=== PATIENT | male | born 2000 | race African-American/Black ===

== ENCOUNTER 2022-12-03 02:37 | Inpatient (IN) | payer OTHER ==
[~2022-12-03] VITALS: Ht 167.6 cm; Wt 91.0 kg
[2022-12-03] MEDS ORDERED: MULTIVITAMIN -ADULT INJECTION 10 ML, THIAMINE INJection 100 MG, FOLIC ACID 1 MG in NS 1... IV ONE (04:10)
[2022-12-03] MEDS ORDERED: NS 1,000 ML IV ONE (04:10)
[2022-12-03 04:28] LABS: HEMATOCRIT 43.3 % (42.0-52.0); HEMOGLOBIN 15.4 g/dl (13.5-17.5); MEAN CORPUSCULAR HEMOGLOBIN 28.8 pg (27.0-33.0); MEAN CORPUSCULAR HGB CONC 35.6 g/dl (32.0-36.5); MEAN CORPUSCULAR VOLUME 81.1 fl (80.0-96.0); PLATELET COUNT, AUTOMATED 222 10^3/uL (150-450); RED BLOOD COUNT 5.34 10^6/uL (4.30-6.10); WHITE BLOOD COUNT 8.3 10^3/uL (4.0-10.0)
[2022-12-03 04:54] LABS: ETHYL ALCOHOL (ETHANOL) 0.171 % (0.000-0.010)
[2022-12-03 04:56] LABS: ACETAMINOPHEN LEVEL < 2.0 UG/ML (10.0-20.0); ALBUMIN 4.6 G/DL (3.2-5.2); ALKALINE PHOSPHATASE 86 U/L (46-116); ALT/SGPT 15 U/L (7.0-40); AST/SGOT 18 U/L (<34); BILIRUBIN,DIRECT 0.3 MG/DL (<0.4); BLOOD UREA NITROGEN 8 MG/DL (9-23); CARBON DIOXIDE LEVEL 25 MMOL/L (20-31); CHLORIDE LEVEL 107 MMOL/L (98-107); GLOMERULAR FILTRATION RATE > 60.0 (>60); GLUCOSE, FASTING 111 MG/DL (60-100); POTASSIUM SERUM 3.6 MMOL/L (3.5-5.1); SALICYLATE LEVEL < 3.0 MG/DL (<30); SODIUM LEVEL 142 MMOL/L (136-145); TOTAL PROTEIN 7.1 G/DL (5.7-8.2)
[2022-12-03 04:58] LABS: THYROID STIMULATING HORMONE 1.259 uIU/ML (0.55-4.78)
[2022-12-03 09:03] LABS: BARBITURATES URINE NEGATIVE (NEGATIVE); COCAINE METABOLITE URINE NEGATIVE (NEGATIVE)
[2022-12-03 09:04] LABS: AMPHETAMINES LEVEL URINE NEGATIVE (NEGATIVE); BENZODIAZEPINES URINE NEGATIVE (NEGATIVE); CANNABINOIDS URINE NEGATIVE (NEGATIVE); METHADONE URINE NEGATIVE (NEGATIVE); OPIATES URINE NEGATIVE (NEGATIVE); PHENCYCLIDINE URINE NEGATIVE (NEGATIVE)
[2022-12-03] MEDS ORDERED: MOM 30ML SUSPENSION UDC PO PRN (22:40)
[2022-12-03] MEDS ORDERED: MAALOX 30 ML SUSP *UDC PO PRN (22:40)
[2022-12-03] MEDS ORDERED: LORazepam 2 MG TAB PO PRN (22:40)
[2022-12-03] MEDS ORDERED: ACETAMINOPHEN TAB 650MG DOSE (2X325MG) PO PRN (22:40)
[2022-12-04 01:36] VITALS: BP 146/72
[2022-12-04 07:05] VITALS: BP 136/73
[2022-12-04 08:00] VITALS: BP 140/63
[2022-12-04] MEDS ORDERED: HOME MED LIST COMPLETE! XX SCH (09:45)
[2022-12-04] MEDS: MULTIVITAMINS/MINERALS THERAP 1 TAB PO SCH (09:55)
[2022-12-04] MEDS: NICOTINE 21MG/24HR 1 EA TRANSDERMAL TD SCH (09:55)
[2022-12-04] MEDS: THIAMINE 100 MG TAB PO SCH ×2 (09:55→21:23)
[2022-12-04] MEDS: FOLIC ACID 1MG TAB PO SCH (09:55)
[2022-12-04] MEDS: SERTRALINE HCL 50 MG TAB PO SCH (12:52)
[2022-12-04 17:00] VITALS: BP 137/89
[2022-12-04 18:00] VITALS: BP 145/67
[2022-12-04] MEDS: traZODone 50 MG TAB PO PRN (21:23)
[2022-12-05 06:25] VITALS: BP 139/76
[2022-12-05 08:02] VITALS: BP 151/90
[2022-12-05] MEDS: NICOTINE 21MG/24HR 1 EA TRANSDERMAL TD SCH (08:12)
[2022-12-05] MEDS: THIAMINE 100 MG TAB PO SCH ×2 (08:12→20:15)
[2022-12-05] MEDS: SERTRALINE HCL 50 MG TAB PO SCH (08:12)
[2022-12-05] MEDS: FOLIC ACID 1MG TAB PO SCH (08:12)
[2022-12-05] MEDS: MULTIVITAMINS/MINERALS THERAP 1 TAB PO SCH (08:12)
[2022-12-05] MEDS: hydrOXYzine 50 MG TAB PO PRN (11:12)
[2022-12-05 15:00] VITALS: BP 137/73
[2022-12-05] MEDS ORDERED: diphenhydrAMINE 50MG CAP PO ONE (15:50)
[2022-12-05 16:31] VITALS: BP 137/73
[2022-12-05] MEDS: traZODone 50 MG TAB PO PRN (20:14)
[2022-12-05 21:20] VITALS: BP 119/72
[2022-12-06 06:22] VITALS: BP 125/60
[2022-12-06 06:47] VITALS: BP 125/60
[2022-12-06] MEDS: MULTIVITAMINS/MINERALS THERAP 1 TAB PO SCH (08:21)
[2022-12-06] MEDS: FOLIC ACID 1MG TAB PO SCH (08:21)
[2022-12-06] MEDS: THIAMINE 100 MG TAB PO SCH ×2 (08:21→21:16)
[2022-12-06] MEDS: SERTRALINE HCL 50 MG TAB PO SCH (08:21)
[2022-12-06] MEDS: NICOTINE 21MG/24HR 1 EA TRANSDERMAL TD SCH (08:22)
[2022-12-06 14:00] VITALS: BP 131/61
[2022-12-06 17:17] VITALS: BP 131/61
[2022-12-07 06:39] VITALS: BP 127/62
[2022-12-07] MEDS: hydrOXYzine 50 MG TAB PO PRN (08:19)
[2022-12-07] MEDS: SERTRALINE HCL 50 MG TAB PO SCH (08:19)
[2022-12-07] MEDS ORDERED: HYDR50TA70 PO ×2 (08:49→20:44)
[2022-12-07] MEDS ORDERED: SERT50TA29 PO ×2 (08:49→20:44)
[2022-12-07] MEDS ORDERED: TRAZ-252 PO ×2 (08:49→20:44)
[2022-12-07] MEDS: NICOTINE 21MG/24HR 1 EA TRANSDERMAL TD SCH (09:00)
== END 2022-12-07 10:30 | disposition home or self-care (01) | DRG 881 ==
LOC: M ED 02:37 → EDBD 02:37 → M ED INP 20:52 → M PSY 12-04 00:07
PROVIDERS: ADMIT Psychiatry & Neurology Psychiatry; ATTEND Psychiatry & Neurology Psychiatry
DX: F32.A Depression, unspecified (principal); F43.23 Adjustment disorder with mixed anxiety and depressed mood; Z91.82 Personal history of military deployment; Z81.8 Family history of other mental and behavioral disorders; F17.290 Nicotine dependence, other tobacco product, uncomplicated; Z63.5 Disruption of family by separation and divorce; F10.129 Alcohol abuse with intoxication, unspecified

== ENCOUNTER 2022-12-07 18:26 | Inpatient (IN) | payer OTHER ==
[~2022-12-07] VITALS: Ht 167.6 cm; Wt 91.5 kg
[~2022-12-07 18:26] MED LIST: HYDR50TA70 PO; SERT50TA29 PO; TRAZ-252 PO
[2022-12-07 19:39] LABS: HEMATOCRIT 47.3 % (42.0-52.0); HEMOGLOBIN 16.6 g/dl (13.5-17.5); MEAN CORPUSCULAR HEMOGLOBIN 28.7 pg (27.0-33.0); MEAN CORPUSCULAR HGB CONC 35.1 g/dl (32.0-36.5); MEAN CORPUSCULAR VOLUME 81.7 fl (80.0-96.0); PLATELET COUNT, AUTOMATED 268 10^3/uL (150-450); RED BLOOD COUNT 5.79 10^6/uL (4.30-6.10); WHITE BLOOD COUNT 10.3 10^3/uL (4.0-10.0)
[2022-12-07 20:02] LABS: AMPHETAMINES LEVEL URINE NEGATIVE (NEGATIVE); BARBITURATES URINE NEGATIVE (NEGATIVE); BENZODIAZEPINES URINE NEGATIVE (NEGATIVE); CANNABINOIDS URINE NEGATIVE (NEGATIVE); COCAINE METABOLITE URINE NEGATIVE (NEGATIVE); METHADONE URINE NEGATIVE (NEGATIVE); OPIATES URINE NEGATIVE (NEGATIVE); PHENCYCLIDINE URINE NEGATIVE (NEGATIVE)
[2022-12-07 20:03] LABS: ETHYL ALCOHOL (ETHANOL) < 0.003 % (0.000-0.010)
[2022-12-07 20:05] LABS: ACETAMINOPHEN LEVEL < 2.0 UG/ML (10.0-20.0); SALICYLATE LEVEL < 3.0 MG/DL (<30)
[2022-12-07 20:07] LABS: THYROID STIMULATING HORMONE 2.037 uIU/ML (0.55-4.78)
[2022-12-07 20:09] LABS: ALBUMIN 4.6 G/DL (3.2-5.2); ALKALINE PHOSPHATASE 99 U/L (46-116); ALT/SGPT 13 U/L (7.0-40); AST/SGOT 17 U/L (<34); BILIRUBIN,DIRECT 0.3 MG/DL (<0.4); BILIRUBIN,TOTAL 1.3 MG/DL (0.3-1.2); BLOOD UREA NITROGEN 8 MG/DL (9-23); CALCIUM LEVEL 9.4 MG/DL (8.5-10.1); CARBON DIOXIDE LEVEL 28 MMOL/L (20-31); CHLORIDE LEVEL 104 MMOL/L (98-107); CREATININE FOR GFR 1.07 MG/DL (0.70-1.30); GLOMERULAR FILTRATION RATE > 60.0 (>60); GLUCOSE, FASTING 85 MG/DL (60-100); SODIUM LEVEL 141 MMOL/L (136-145); TOTAL PROTEIN 7.6 G/DL (5.7-8.2)
[2022-12-07] MEDS ORDERED: SERT50TA29 PO (20:44)
[2022-12-07] MEDS ORDERED: HYDR50TA70 PO (20:44)
[2022-12-07] MEDS ORDERED: TRAZ-252 PO (20:44)
[2022-12-07] MEDS ORDERED: HOME MED LIST COMPLETE! XX SCH (20:45)
[2022-12-07] MEDS ORDERED: MAALOX 30 ML SUSP *UDC PO PRN (20:55)
[2022-12-07] MEDS ORDERED: MOM 30ML SUSPENSION UDC PO PRN (20:55)
[2022-12-07] MEDS ORDERED: diphenhydrAMINE 25MG CAP PO PRN (20:55)
[2022-12-07] MEDS: traZODone 50 MG TAB PO PRN (22:34)
[2022-12-08 06:45] VITALS: BP 143/83
[2022-12-08] MEDS: hydrOXYzine 50 MG TAB PO PRN ×2 (08:18→20:22)
[2022-12-08] MEDS: SERTRALINE HCL 50 MG TAB PO SCH (08:19)
[2022-12-08] MEDS ORDERED: LORazepam 0.5 MG TAB PO ONE (09:35)
[2022-12-08] MEDS: NICOTINE 21MG/24HR 1 EA TRANSDERMAL TD SCH (09:43)
[2022-12-08] MEDS: OLANZapine ORAL DISINTEGRATING TAB 5MG PO PRN (17:44)
[2022-12-08 18:13] VITALS: BP 145/80
[2022-12-08] MEDS: traZODone 50 MG TAB PO PRN (20:22)
[2022-12-09 06:15] VITALS: BP 121/58
[2022-12-09] MEDS: NICOTINE 21MG/24HR 1 EA TRANSDERMAL TD SCH (08:10)
[2022-12-09] MEDS: SERTRALINE HCL 50 MG TAB PO SCH (08:10)
[2022-12-09] MEDS: hydrOXYzine 50 MG TAB PO PRN ×2 (08:11→20:16)
[2022-12-09] MEDS: OLANZapine ORAL DISINTEGRATING TAB 5MG PO PRN (10:52)
[2022-12-09 18:00] VITALS: BP 159/86
[2022-12-09] MEDS: traZODone 50 MG TAB PO PRN (20:17)
[2022-12-09] MEDS: cloNIDine 0.1MG TABLET PO SCH (20:17)
[2022-12-10 06:05] VITALS: BP 131/86
[2022-12-10] MEDS: SERTRALINE HCL 50 MG TAB PO SCH (08:23)
[2022-12-10] MEDS: NICOTINE 21MG/24HR 1 EA TRANSDERMAL TD SCH (08:23)
[2022-12-10] MEDS: cloNIDine 0.1MG TABLET PO SCH ×3 (08:23→21:18)
[2022-12-10] MEDS: OLANZapine ORAL DISINTEGRATING TAB 5MG PO PRN (11:28)
[2022-12-10] MEDS ORDERED: SERTRALINE HCL 50 MG TAB PO SCH (16:00)
[2022-12-10] MEDS ORDERED: SERTRALINE 100 MG TAB PO ONE (17:05)
[2022-12-10 18:00] VITALS: BP 147/84
[2022-12-10] MEDS: OLANZapine 5 MG TAB PO SCH (21:17)
[2022-12-10] MEDS: traZODone 50 MG TAB PO PRN (21:18)
[2022-12-11 07:13] VITALS: BP 109/68
[2022-12-11 08:06] VITALS: BP 131/79
[2022-12-11] MEDS: SERTRALINE HCL 50 MG TAB PO SCH (08:07)
[2022-12-11] MEDS: cloNIDine 0.1MG TABLET PO SCH ×3 (08:07→20:44)
[2022-12-11] MEDS: NICOTINE 21MG/24HR 1 EA TRANSDERMAL TD SCH (08:08)
[2022-12-11] MEDS: OLANZapine ORAL DISINTEGRATING TAB 5MG PO PRN (12:59)
[2022-12-11 15:31] VITALS: BP 129/62
[2022-12-11] MEDS: OLANZapine 5 MG TAB PO SCH (20:44)
[2022-12-11] MEDS: ACETAMINOPHEN TAB 650MG DOSE (2X325MG) PO PRN (20:44)
[2022-12-11] MEDS: traZODone 50 MG TAB PO PRN (20:44)
[2022-12-12 06:52] VITALS: BP 150/69
[2022-12-12] MEDS: NICOTINE 21MG/24HR 1 EA TRANSDERMAL TD SCH (08:12)
[2022-12-12] MEDS: cloNIDine 0.1MG TABLET PO SCH ×3 (08:13→22:21)
[2022-12-12] MEDS: SERTRALINE HCL 50 MG TAB PO SCH (08:13)
[2022-12-12] MEDS: OLANZapine ORAL DISINTEGRATING TAB 5MG PO PRN ×2 (13:01→17:16)
[2022-12-12 15:06] VITALS: BP 140/68
[2022-12-12] MEDS: OLANZapine 5 MG TAB PO SCH (22:20)
[2022-12-12] MEDS: traZODone 50 MG TAB PO PRN (22:21)
[2022-12-13 06:34] VITALS: BP 136/60
[2022-12-13 08:18] VITALS: BP 134/63
[2022-12-13] MEDS: SERTRALINE HCL 50 MG TAB PO SCH (08:22)
[2022-12-13] MEDS: cloNIDine 0.1MG TABLET PO SCH ×3 (08:23→20:03)
[2022-12-13] MEDS: NICOTINE 21MG/24HR 1 EA TRANSDERMAL TD SCH (08:23)
[2022-12-13 15:14] VITALS: BP 134/88
[2022-12-13 16:32] VITALS: BP 134/88
[2022-12-13] MEDS: OLANZapine 5 MG TAB PO SCH (20:03)
[2022-12-13] MEDS: traZODone 50 MG TAB PO PRN (20:03)
[2022-12-14 06:18] VITALS: BP 138/67
[2022-12-14 08:03] VITALS: BP 134/69
[2022-12-14] MEDS: cloNIDine 0.1MG TABLET PO SCH ×3 (08:04→21:35)
[2022-12-14] MEDS: SERTRALINE HCL 50 MG TAB PO SCH (08:04)
[2022-12-14] MEDS: NICOTINE 21MG/24HR 1 EA TRANSDERMAL TD SCH (08:06)
[2022-12-14] MEDS: OLANZapine ORAL DISINTEGRATING TAB 5MG PO PRN (13:57)
[2022-12-14 16:47] VITALS: BP 150/84
[2022-12-14] MEDS: traZODone 50 MG TAB PO PRN (21:33)
[2022-12-14] MEDS: OLANZapine 5 MG TAB PO SCH (21:33)
[2022-12-15 06:34] VITALS: BP 126/80
[2022-12-15] MEDS: NICOTINE 21MG/24HR 1 EA TRANSDERMAL TD SCH (08:04)
[2022-12-15] MEDS: SERTRALINE HCL 50 MG TAB PO SCH (08:04)
[2022-12-15] MEDS: OLANZapine ORAL DISINTEGRATING TAB 5MG PO PRN ×2 (08:05→22:16)
[2022-12-15] MEDS: cloNIDine 0.1MG TABLET PO SCH ×3 (08:05→20:48)
[2022-12-15 15:50] VITALS: BP 126/84
[2022-12-15] MEDS: OLANZapine 5 MG TAB PO SCH (20:47)
[2022-12-15] MEDS: traZODone 50 MG TAB PO PRN (20:48)
[2022-12-16 06:07] VITALS: BP 124/58
[2022-12-16] MEDS: SERTRALINE HCL 50 MG TAB PO SCH (09:16)
[2022-12-16] MEDS: NICOTINE 21MG/24HR 1 EA TRANSDERMAL TD SCH (09:16)
[2022-12-16] MEDS: cloNIDine 0.1MG TABLET PO SCH ×3 (09:16→21:12)
[2022-12-16] MEDS: OLANZapine ORAL DISINTEGRATING TAB 5MG PO PRN ×2 (09:16→21:12)
[2022-12-16] MEDS: OLANZapine 5 MG TAB PO SCH (21:11)
[2022-12-16] MEDS: traZODone 50 MG TAB PO PRN (21:11)
[2022-12-17 06:24] VITALS: BP 125/61
[2022-12-17] MEDS: SERTRALINE HCL 50 MG TAB PO SCH (08:28)
[2022-12-17] MEDS: OLANZapine ORAL DISINTEGRATING TAB 5MG PO PRN (08:28)
[2022-12-17] MEDS: NICOTINE 21MG/24HR 1 EA TRANSDERMAL TD SCH (08:28)
[2022-12-17] MEDS: cloNIDine 0.1MG TABLET PO SCH ×3 (08:36→21:21)
[2022-12-17 17:41] VITALS: BP 126/85
[2022-12-17] MEDS: ACETAMINOPHEN TAB 650MG DOSE (2X325MG) PO PRN (21:21)
[2022-12-17] MEDS: OLANZapine 5 MG TAB PO SCH (21:21)
[2022-12-17] MEDS: traZODone 50 MG TAB PO PRN (21:21)
[2022-12-18 06:00] VITALS: BP 140/52
[2022-12-18 08:37] VITALS: BP 131/72
[2022-12-18] MEDS: hydrOXYzine 50 MG TAB PO PRN ×2 (08:38→20:47)
[2022-12-18] MEDS: SERTRALINE HCL 50 MG TAB PO SCH (08:38)
[2022-12-18] MEDS: cloNIDine 0.1MG TABLET PO SCH ×3 (08:39→20:49)
[2022-12-18] MEDS: NICOTINE 21MG/24HR 1 EA TRANSDERMAL TD SCH (08:40)
[2022-12-18] MEDS: OLANZapine ORAL DISINTEGRATING TAB 5MG PO PRN ×2 (16:05→20:48)
[2022-12-18 18:00] VITALS: BP 140/82
[2022-12-18] MEDS: traZODone 50 MG TAB PO PRN (20:48)
[2022-12-18] MEDS: OLANZapine 5 MG TAB PO SCH (20:48)
[2022-12-19 06:45] VITALS: BP 115/55
[2022-12-19 09:20] VITALS: BP 129/74
[2022-12-19] MEDS: SERTRALINE HCL 50 MG TAB PO SCH (09:23)
[2022-12-19] MEDS: cloNIDine 0.1MG TABLET PO SCH ×3 (09:23→21:05)
[2022-12-19] MEDS: NICOTINE 21MG/24HR 1 EA TRANSDERMAL TD SCH (09:23)
[2022-12-19 18:11] VITALS: BP 150/89
[2022-12-19] MEDS: hydrOXYzine 50 MG TAB PO PRN (21:01)
[2022-12-19] MEDS: OLANZapine 5 MG TAB PO SCH (21:03)
[2022-12-19] MEDS: OLANZapine ORAL DISINTEGRATING TAB 5MG PO PRN (21:04)
[2022-12-19] MEDS: traZODone 50 MG TAB PO PRN (21:04)
[2022-12-20 06:34] VITALS: BP 137/89
[2022-12-20] MEDS: SERTRALINE HCL 50 MG TAB PO SCH (08:39)
[2022-12-20] MEDS: cloNIDine 0.1MG TABLET PO SCH ×3 (08:39→22:00)
[2022-12-20] MEDS: hydrOXYzine 50 MG TAB PO PRN (08:39)
[2022-12-20] MEDS: NICOTINE 21MG/24HR 1 EA TRANSDERMAL TD SCH (08:40)
[2022-12-20] MEDS: OLANZapine ORAL DISINTEGRATING TAB 5MG PO PRN (15:34)
[2022-12-20 18:10] VITALS: BP 122/80
[2022-12-20] MEDS ORDERED: PRAZOSIN 1 MG CAP PO SCH (21:00)
[2022-12-20] MEDS: OLANZapine 5 MG TAB PO SCH (21:55)
[2022-12-20] MEDS: traZODone 50 MG TAB PO PRN (21:55)
[2022-12-21 06:38] VITALS: BP 133/77
[2022-12-21 07:59] VITALS: BP 136/80
[2022-12-21 08:02] VITALS: BP 136/80
[2022-12-21] MEDS: cloNIDine 0.1MG TABLET PO SCH (08:02)
[2022-12-21] MEDS: SERTRALINE HCL 50 MG TAB PO SCH (08:02)
[2022-12-21] MEDS: hydrOXYzine 50 MG TAB PO PRN (08:03)
[2022-12-21] MEDS: NICOTINE 21MG/24HR 1 EA TRANSDERMAL TD SCH (08:05)
[2022-12-21] MEDS ORDERED: TRAZ-252 PO (08:44)
[2022-12-21] MEDS ORDERED: CLONI1TA PO (08:44)
[2022-12-21] MEDS ORDERED: HYDR50TA70 PO (08:44)
[2022-12-21] MEDS ORDERED: MINI1CAP PO (08:44)
[2022-12-21] MEDS ORDERED: SERT50TA29 PO (08:44)
[2022-12-21] MEDS ORDERED: OLAN1TAB16 PO (08:44)
[2022-12-21] MEDS: OLANZapine ORAL DISINTEGRATING TAB 5MG PO PRN (08:46)
== END 2022-12-21 09:46 | DRG 881 ==
LOC: M ED 18:26 → M ED INP 20:53 → M PSY 22:01
PROVIDERS: ADMIT Psychiatry & Neurology Psychiatry; ATTEND Student in an Organized Health Care Education/Training Program
DX: F32.A Depression, unspecified (principal); R45.851 Suicidal ideations; F43.23 Adjustment disorder with mixed anxiety and depressed mood; F17.200 Nicotine dependence, unspecified, uncomplicated; R45.850 Homicidal ideations; Z63.5 Disruption of family by separation and divorce; Z79.899 Other long term (current) drug therapy

== ENCOUNTER 2023-02-21 17:19 | Inpatient (IN) | payer OTHER ==
[~2023-02-21] VITALS: Ht 167.6 cm; Wt 104.5 kg
[~2023-02-21 17:19] MED LIST changes: +CLONI1TA PO; +MINI1CAP PO; +OLAN1TAB16 PO
[2023-02-21 17:58] LABS: HEMOGLOBIN 16.4 g/dl (13.5-17.5); MEAN CORPUSCULAR HEMOGLOBIN 29.3 pg (27.0-33.0); MEAN CORPUSCULAR HGB CONC 35.7 g/dl (32.0-36.5); MEAN CORPUSCULAR VOLUME 82.1 fl (80.0-96.0); PLATELET COUNT, AUTOMATED 265 10^3/uL (150-450); WHITE BLOOD COUNT 11.1 10^3/uL (4.0-10.0)
[2023-02-21 18:26] LABS: AMPHETAMINES LEVEL URINE NEGATIVE (NEGATIVE); BARBITURATES URINE NEGATIVE (NEGATIVE); CANNABINOIDS URINE NEGATIVE (NEGATIVE); COCAINE METABOLITE URINE NEGATIVE (NEGATIVE); METHADONE URINE NEGATIVE (NEGATIVE); OPIATES URINE NEGATIVE (NEGATIVE); PHENCYCLIDINE URINE NEGATIVE (NEGATIVE)
[2023-02-21 18:27] LABS: BENZODIAZEPINES URINE NEGATIVE (NEGATIVE)
[2023-02-21 18:29] LABS: ETHYL ALCOHOL (ETHANOL) < 0.003 % (0.000-0.010); SALICYLATE LEVEL < 3.0 MG/DL (<30)
[2023-02-21 18:30] LABS: ACETAMINOPHEN LEVEL < 2.0 UG/ML (10.0-20.0); ALBUMIN 5.1 G/DL (3.2-5.2); ALKALINE PHOSPHATASE 93 U/L (46-116); ALT/SGPT 39 U/L (7.0-40); AST/SGOT 30 U/L (<34); BILIRUBIN,DIRECT 0.3 MG/DL (<0.4); BILIRUBIN,TOTAL 1.1 MG/DL (0.3-1.2); BLOOD UREA NITROGEN 15 MG/DL (9-23); CALCIUM LEVEL 9.8 MG/DL (8.5-10.1); CARBON DIOXIDE LEVEL 22 MMOL/L (20-31); CHLORIDE LEVEL 106 MMOL/L (98-107); CREATININE FOR GFR 0.95 MG/DL (0.70-1.30); GLOMERULAR FILTRATION RATE > 60.0 (>60); GLUCOSE, FASTING 88 MG/DL (60-100); POTASSIUM SERUM 3.9 MMOL/L (3.5-5.1); SODIUM LEVEL 140 MMOL/L (136-145)
[2023-02-21 18:32] LABS: THYROID STIMULATING HORMONE 3.038 uIU/ML (0.55-4.78)
[2023-02-21] MEDS ORDERED: PRAZOSIN 1 MG CAP PO SCH (21:00)
[2023-02-21] MEDS ORDERED: OLANZapine 5 MG TAB PO SCH (21:00)
[2023-02-21] MEDS ORDERED: diphenhydrAMINE 25MG CAP PO PRN (21:35)
[2023-02-21] MEDS ORDERED: ACETAMINOPHEN TAB 650MG DOSE (2X325MG) PO PRN (21:35)
[2023-02-21] MEDS ORDERED: IBUPROFEN 400MG TAB PO PRN (21:35)
[2023-02-21] MEDS ORDERED: MOM 30ML SUSPENSION UDC PO PRN (21:35)
[2023-02-21] MEDS ORDERED: traZODone 50 MG TAB PO PRN (21:35)
[2023-02-21] MEDS ORDERED: MAALOX 30 ML SUSP *UDC PO PRN (21:35)
[2023-02-21] MEDS: cloNIDine 0.1MG TABLET PO SCH (21:59)
[2023-02-21 22:44] VITALS: BP 166/90; TEMP 98; O2SAT 99
[2023-02-21] MEDS ORDERED: TIZA10TA PO (23:44)
[2023-02-21] MEDS ORDERED: HYDR50TA70 PO (23:44)
[2023-02-21] MEDS ORDERED: SUMA50TA2 PO (23:44)
[2023-02-21] MEDS ORDERED: TRAZ-186 PO (23:44)
[2023-02-21] MEDS ORDERED: SERT50TA29 PO (23:44)
[2023-02-21] MEDS ORDERED: HOME MED LIST COMPLETE! XX SCH (23:45)
[2023-02-22] MEDS ORDERED: amLODIPine 5 MG TAB PO ONE (01:05)
[2023-02-22 06:15] VITALS: BP 139/63; TEMP 97.1; O2SAT 98
[2023-02-22] MEDS ORDERED: SERTRALINE HCL 50 MG TAB PO SCH (09:00)
[2023-02-22] MEDS: cloNIDine 0.1MG TABLET PO SCH ×3 (09:19→20:45)
[2023-02-22] MEDS ORDERED: NICOTINE 14 MG/24 HR TRANSDERMAL TD PRN (14:15)
[2023-02-22] MEDS ORDERED: TRAZ1TAB14 PO (15:09)
[2023-02-22] MEDS ORDERED: MIRT1TAB15 PO (15:09)
[2023-02-22] MEDS ORDERED: OLAN20TA14 PO (15:09)
[2023-02-22] MEDS ORDERED: NICO14DI24 TD (15:09)
[2023-02-22] MEDS ORDERED: PRAZ1CAP PO (15:09)
[2023-02-22] MEDS ORDERED: PROP20TA72 PO (15:09)
[2023-02-22] MEDS ORDERED: ATOR1TAB19 PO (15:09)
[2023-02-22] MEDS ORDERED: NALT50TA4 PO (15:09)
[2023-02-22] MEDS ORDERED: CLON-412 PO (15:09)
[2023-02-22] MEDS ORDERED: PANT20TA51 PO (15:09)
[2023-02-22] MEDS ORDERED: DIPH-435 PO (15:09)
[2023-02-22] MEDS ORDERED: ZOLO100T PO (15:09)
[2023-02-22] MEDS ORDERED: HOME MED LIST COMPLETE! XX SCH (15:15)
[2023-02-22 17:39] VITALS: BP 134/99; TEMP 97.3; O2SAT 96
[2023-02-22] MEDS: diphenhydrAMINE 50MG CAP PO SCH (20:44)
[2023-02-22] MEDS: traZODone 50 MG TAB PO SCH (20:44)
[2023-02-22] MEDS: PRAZOSIN 1 MG CAP PO SCH (20:45)
[2023-02-22] MEDS: OLANZapine 10 MG TAB PO SCH (20:45)
[2023-02-22] MEDS: MIRTAZAPINE 15 MG TAB PO SCH (20:45)
[2023-02-22] MEDS: PROPRANOLOL 20 MG TAB PO SCH (20:45)
[2023-02-23 06:29] VITALS: BP 119/59; TEMP 98; O2SAT 98
[2023-02-23] MEDS: cloNIDine 0.1MG TABLET PO SCH ×3 (09:14→20:38)
[2023-02-23] MEDS: NALTREXONE 50 MG TAB PO SCH (09:15)
[2023-02-23] MEDS: PROPRANOLOL 20 MG TAB PO SCH ×2 (09:15→20:38)
[2023-02-23] MEDS: PANTOPRAZOLE 20 MG TAB PO SCH (09:16)
[2023-02-23] MEDS: SERTRALINE 100 MG TAB PO SCH (09:16)
[2023-02-23] MEDS: PILL CUTTER 1 EACH XX PRN (09:18)
[2023-02-23 15:24] VITALS: BP 137/64; TEMP 98.3; O2SAT 98
[2023-02-23] MEDS: PRAZOSIN 1 MG CAP PO SCH (20:37)
[2023-02-23] MEDS: traZODone 50 MG TAB PO SCH (20:38)
[2023-02-23] MEDS: OLANZapine 10 MG TAB PO SCH (20:38)
[2023-02-23] MEDS: MIRTAZAPINE 15 MG TAB PO SCH (20:38)
[2023-02-23] MEDS: diphenhydrAMINE 50MG CAP PO SCH (20:38)
[2023-02-24 06:50] VITALS: BP 123/56; TEMP 96.7; O2SAT 97
[2023-02-24] MEDS: cloNIDine 0.1MG TABLET PO SCH ×3 (08:35→21:12)
[2023-02-24] MEDS: PANTOPRAZOLE 20 MG TAB PO SCH (08:36)
[2023-02-24] MEDS: SERTRALINE 100 MG TAB PO SCH (08:36)
[2023-02-24] MEDS: NALTREXONE 50 MG TAB PO SCH (08:36)
[2023-02-24] MEDS: PROPRANOLOL 20 MG TAB PO SCH ×2 (08:36→21:12)
[2023-02-24 16:19] VITALS: BP 121/60; TEMP 98.1; O2SAT 100
[2023-02-24] MEDS: hydrOXYzine 50 MG TAB PO PRN (19:05)
[2023-02-24] MEDS: traZODone 50 MG TAB PO SCH (21:12)
[2023-02-24] MEDS: OLANZapine 10 MG TAB PO SCH (21:12)
[2023-02-24] MEDS: diphenhydrAMINE 50MG CAP PO SCH (21:12)
[2023-02-24] MEDS: MIRTAZAPINE 15 MG TAB PO SCH (21:12)
[2023-02-24] MEDS: PRAZOSIN 1 MG CAP PO SCH (21:16)
[2023-02-25 06:35] VITALS: BP 126/61; TEMP 97.7; O2SAT 98
[2023-02-25] MEDS: PANTOPRAZOLE 20 MG TAB PO SCH (08:37)
[2023-02-25] MEDS: cloNIDine 0.1MG TABLET PO SCH ×3 (08:37→20:49)
[2023-02-25] MEDS: SERTRALINE 100 MG TAB PO SCH (08:37)
[2023-02-25] MEDS: PROPRANOLOL 20 MG TAB PO SCH ×2 (08:38→20:49)
[2023-02-25] MEDS: NALTREXONE 50 MG TAB PO SCH (08:38)
[2023-02-25] MEDS: hydrOXYzine 50 MG TAB PO PRN (15:32)
[2023-02-25 16:20] VITALS: BP 136/90; TEMP 97.2; O2SAT 99
[2023-02-25] MEDS: diphenhydrAMINE 50MG CAP PO SCH (20:48)
[2023-02-25] MEDS: OLANZapine 10 MG TAB PO SCH (20:48)
[2023-02-25] MEDS: PRAZOSIN 1 MG CAP PO SCH (20:49)
[2023-02-25] MEDS: traZODone 50 MG TAB PO SCH (20:49)
[2023-02-25] MEDS: MIRTAZAPINE 15 MG TAB PO SCH (20:50)
[2023-02-26 06:18] VITALS: BP 133/62; TEMP 97.1; O2SAT 95
[2023-02-26] MEDS: cloNIDine 0.1MG TABLET PO SCH ×3 (08:31→21:05)
[2023-02-26] MEDS: NALTREXONE 50 MG TAB PO SCH (08:31)
[2023-02-26] MEDS: PILL CUTTER 1 EACH XX PRN (08:31)
[2023-02-26] MEDS: PANTOPRAZOLE 20 MG TAB PO SCH (08:31)
[2023-02-26] MEDS: PROPRANOLOL 20 MG TAB PO SCH ×2 (08:32→21:04)
[2023-02-26] MEDS: SERTRALINE 100 MG TAB PO SCH (08:32)
[2023-02-26] MEDS: hydrOXYzine 50 MG TAB PO PRN (16:47)
[2023-02-26 18:00] VITALS: BP 150/66; TEMP 97.1; O2SAT 99
[2023-02-26] MEDS: traZODone 50 MG TAB PO SCH (21:04)
[2023-02-26] MEDS: OLANZapine 10 MG TAB PO SCH (21:04)
[2023-02-26] MEDS: MIRTAZAPINE 15 MG TAB PO SCH (21:04)
[2023-02-26] MEDS: diphenhydrAMINE 50MG CAP PO SCH (21:05)
[2023-02-26] MEDS: PRAZOSIN 1 MG CAP PO SCH (21:05)
[2023-02-27 06:27] VITALS: BP 129/74; TEMP 98.3; O2SAT 99
[2023-02-27] MEDS: PANTOPRAZOLE 20 MG TAB PO SCH (08:29)
[2023-02-27] MEDS: PILL CUTTER 1 EACH XX PRN (08:29)
[2023-02-27] MEDS: cloNIDine 0.1MG TABLET PO SCH ×3 (08:30→20:10)
[2023-02-27] MEDS: PROPRANOLOL 20 MG TAB PO SCH ×2 (08:30→20:10)
[2023-02-27] MEDS: SERTRALINE 100 MG TAB PO SCH (08:30)
[2023-02-27] MEDS: NALTREXONE 50 MG TAB PO SCH (08:31)
[2023-02-27 18:01] VITALS: BP 129/58; TEMP 97; O2SAT 96
[2023-02-27] MEDS: MIRTAZAPINE 15 MG TAB PO SCH (20:08)
[2023-02-27] MEDS: OLANZapine 10 MG TAB PO SCH (20:10)
[2023-02-27] MEDS: hydrOXYzine 50 MG TAB PO PRN (20:11)
[2023-02-27] MEDS: diphenhydrAMINE 50MG CAP PO SCH (20:11)
[2023-02-27] MEDS: PRAZOSIN 1 MG CAP PO SCH (20:11)
[2023-02-27] MEDS: traZODone 50 MG TAB PO SCH (20:11)
[2023-02-28 06:16] VITALS: BP 124/69; TEMP 97.7; O2SAT 95
[2023-02-28] MEDS ORDERED: MIRT-10 PO (07:52)
[2023-02-28] MEDS: NALTREXONE 50 MG TAB PO SCH (09:28)
[2023-02-28 09:29] VITALS: BP 128/64
[2023-02-28] MEDS: PANTOPRAZOLE 20 MG TAB PO SCH (09:29)
[2023-02-28] MEDS: cloNIDine 0.1MG TABLET PO SCH (09:29)
[2023-02-28] MEDS: SERTRALINE 100 MG TAB PO SCH (09:29)
[2023-02-28] MEDS: PROPRANOLOL 20 MG TAB PO SCH (09:29)
[2023-02-28] MEDS: hydrOXYzine 50 MG TAB PO PRN (11:53)
== END 2023-02-28 12:26 | disposition home or self-care (01) | DRG 885 ==
LOC: M ED 17:19 → M ED INP 21:31 → M PSY 22:48
PROVIDERS: ADMIT Psychiatry & Neurology Psychiatry; ATTEND Student in an Organized Health Care Education/Training Program
DX: F33.9 Major depressive disorder, recurrent, unspecified (principal); R45.851 Suicidal ideations; F10.10 Alcohol abuse, uncomplicated; F17.210 Nicotine dependence, cigarettes, uncomplicated; F43.10 Post-traumatic stress disorder, unspecified; F60.9 Personality disorder, unspecified; Z76.5 Malingerer [conscious simulation]; Z79.899 Other long term (current) drug therapy; Z63.5 Disruption of family by separation and divorce; Z65.3 Problems related to other legal circumstances

== ENCOUNTER 2023-03-29 16:05 | Emergency (ER) | payer OTHER ==
[~2023-03-29] VITALS: Ht 167.6 cm; Wt 104.5 kg
[~2023-03-29 16:05] MED LIST changes: +ATOR1TAB19 PO; +CLON-412 PO; +DIPH-435 PO; +MIRT-10 PO; +MIRT1TAB15 PO; +NALT50TA4 PO; +NICO14DI24 TD; +OLAN20TA14 PO; +PANT20TA51 PO; +PRAZ1CAP PO; +PROP20TA72 PO; +SUMA50TA2 PO; +TIZA10TA PO; +TRAZ-186 PO; +TRAZ1TAB14 PO; +ZOLO100T PO
[2023-03-29] MEDS ORDERED: NICOTINE 21MG/24HR 1 EA TRANSDERMAL TD ONE (16:30)
[2023-03-29 17:30] LABS: HEMOGLOBIN 15.2 g/dl (13.5-17.5); MEAN CORPUSCULAR HEMOGLOBIN 29.5 pg (27.0-33.0); MEAN CORPUSCULAR HGB CONC 35.3 g/dl (32.0-36.5); MEAN CORPUSCULAR VOLUME 83.5 fl (80.0-96.0); PLATELET COUNT, AUTOMATED 269 10^3/uL (150-450); RED BLOOD COUNT 5.15 10^6/uL (4.30-6.10)
[2023-03-29 17:31] LABS: ETHYL ALCOHOL (ETHANOL) < 0.003 % (0.000-0.010)
[2023-03-29 17:32] LABS: ACETAMINOPHEN LEVEL < 2.0 UG/ML (10.0-20.0)
[2023-03-29 17:33] LABS: SALICYLATE LEVEL < 3.0 MG/DL (<30)
[2023-03-29 17:37] LABS: ALBUMIN 4.2 G/DL (3.2-5.2); ALKALINE PHOSPHATASE 101 U/L (46-116); ALT/SGPT 17 U/L (7.0-40); AST/SGOT 15 U/L (<34); BILIRUBIN,DIRECT 0.2 MG/DL (<0.4); BILIRUBIN,TOTAL 0.8 MG/DL (0.3-1.2); BLOOD UREA NITROGEN 13 MG/DL (9-23); CALCIUM LEVEL 8.8 MG/DL (8.5-10.1); CARBON DIOXIDE LEVEL 24 MMOL/L (20-31); CHLORIDE LEVEL 106 MMOL/L (98-107); CREATININE FOR GFR 1.02 MG/DL (0.70-1.30); GLOMERULAR FILTRATION RATE > 60.0 (>60); GLUCOSE, FASTING 97 MG/DL (60-100); POTASSIUM SERUM 3.5 MMOL/L (3.5-5.1); SODIUM LEVEL 140 MMOL/L (136-145); THYROID STIMULATING HORMONE 3.848 uIU/ML (0.55-4.78)
[2023-03-29] MEDS ORDERED: MED REC IN PROGRESS XX SCH (17:55)
[2023-03-29] MEDS ORDERED: HOME MED LIST COMPLETE! XX SCH (18:40)
[2023-03-29 20:33] LABS: AMPHETAMINES LEVEL URINE NEGATIVE (NEGATIVE); BARBITURATES URINE NEGATIVE (NEGATIVE); COCAINE METABOLITE URINE NEGATIVE (NEGATIVE); METHADONE URINE NEGATIVE (NEGATIVE); OPIATES URINE NEGATIVE (NEGATIVE); PHENCYCLIDINE URINE NEGATIVE (NEGATIVE)
[2023-03-29 20:34] LABS: BENZODIAZEPINES URINE NEGATIVE (NEGATIVE); CANNABINOIDS URINE NEGATIVE (NEGATIVE)
[2023-03-30 00:41] VITALS: BP 126/71; TEMP 98.2; O2SAT 99
== END 2023-03-30 00:46 ==
LOC: M ED 16:05
DX: R45.851 Suicidal ideations (principal); Z79.899 Other long term (current) drug therapy